=== PATIENT | female | born 1985 | race Caucasian/White ===

== ENCOUNTER → 2017-05-30 | Outpatient (CLI) | payer BC ==
[~2017-05-30] MED LIST: CALC500T PO; CHOL20007 PO; FERR28TA2 PO; FOLI800T PO; MAGN400T6 PO; METH0.2T39 PO; MULT-506 PO
[2017-05-30 13:41] LABS: BASO % 0.3 %; BASO ABS # 0.03 K/uL (0-0.2); COMPLETE YES; EOS % 0.8 %; HEMATOCRIT 39.6 % (37-47); IG% 0.3 %; LYMPH % 26.3 %; LYMPH ABS # 2.36 K/uL (1.2-3.4); MEAN CELL VOLUME 86.8 fL (80-100); MEAN CORPUSCULAR HEMOGLOBIN 29.6 pg (25-34); MEAN CORPUSCULAR HGB CONC 34.1 g/dl (32-36); MEAN PLATELET VOLUME 10.2 fL (7.4-10.4); MONO % 4.9 %; NEUT % 67.4 %; PLATELET COUNT 283 K/uL (130-400); RED BLOOD COUNT 4.56 M/uL (4.2-5.4); WHITE BLOOD COUNT 8.97 K/uL (4.8-10.8)
== END | disposition home or self-care (01) ==
LOC: C.LAB 12:22
PROVIDERS: ATTEND Obstetrics & Gynecology
DX: Z01.812 Encounter for preprocedural laboratory examination (principal)

== ENCOUNTER 2017-05-31 06:30 | Day surgery (SDC) | payer BC ==
[2017-05-28 07:55] VITALS: BMI 25.0
[~2017-05-31] VITALS: Ht 165.1 cm; Wt 68.2 kg
[~2017-05-31 06:30] MED LIST changes: +CEFAZOLIN 2000 MG/60 ML D5W IV SCH; +LACTATED RINGER'S 1000ML 1,000 ML IV SCH; -METH0.2T39 PO
[2017-05-31 06:54] VITALS: BP 106/72; PULSE 85; TEMP 37.3; O2SAT 100; Ht 165.1 cm; Wt 68.2 kg
[2017-05-31] MEDS ORDERED: SCOPOLAMINE 1.5 MG TDSY TD ONE (07:26)
[2017-05-31] MEDS ORDERED: MIDAZOLAM HCL 1 MG/ML 2ML VIAL ONE (07:28)
[2017-05-31] MEDS ORDERED: LIDOCAINE HCL 2% 2 ML VIAL (20MG/ML) ONE (07:28)
[2017-05-31] MEDS ORDERED: PROPOFOL IV EMULSION 10 MG/ML 20 ML VIAL IV ONE ×2 (07:28→08:43)
[2017-05-31] MEDS ORDERED: FENTANYL CITRATE INJ 50 MCG/1 ML 2 ML VIAL ONE (07:28)
[2017-05-31] MEDS ORDERED: NURSING VERBAL MED ORDER ONE (07:30)
[2017-05-31] MEDS ORDERED: ONDANSETRON INJ 2 MG/ML 2 ML VIAL ONE (07:36)
[2017-05-31] MEDS ORDERED: DEXAMETHASONE SOD INJ 4 MG/ML VIAL ONE (07:36)
[2017-05-31] MEDS ORDERED: KETOROLAC TROMETHAMINE 30 MG/ML VIAL ONE (07:57)
[2017-05-31] MEDS ORDERED: IODINE STRONG ONE (08:14)
[2017-05-31] MEDS ORDERED: SILVER NITR/POTASSIUM NITRATE 10 APPLICATOR PACK ONE (08:16)
[2017-05-31] MEDS ORDERED: METHYLERGONOVINE MALEATE 0.2 MG/ML AMP ONE (08:19)
--- NOTE | 2017-05-31 08:20 | History & Physical Bridge Note ---
H&P Re-Evaluation Bridge Note: I have examined the patient, reviewed the History & Physical and in the interval since the performance of the History & Physical I have noted the following changes of clinical significance: No changes noted
[2017-05-31] MEDS ORDERED: CLINDAMYCIN PHOS 150 MG/ML 2 ML VIAL ONE (08:43)
[2017-05-31] MEDS ORDERED: FENTANYL CITRATE INJ 50 MCG/1 ML 2 ML VIAL IV PRN (08:45)
[2017-05-31] MEDS ORDERED: EpHEDrine SULFATE INJ 50 MG/ML AMP IV PRN (08:45)
[2017-05-31] MEDS ORDERED: ONDANSETRON INJ 2 MG/ML 2 ML VIAL IV PRN ×2 (08:45→09:45)
[2017-05-31] MEDS ORDERED: ATROPINE SULFATE 0.1 MG/ML 5ML SYR IV PRN (08:45)
[2017-05-31] MEDS ORDERED: FERRIC SUBSULFATE 8 GM VIAL ONE (09:03)
--- NOTE | 2017-05-31 09:26 | [facility] Post Operative Brief Note ---
Immediate Operative Summary Operative Date May 31, 2017. Pre-Operative Diagnosis Missed Post-Operative Diagnosis Same as preop Procedure(s) Performed Evaluation Under Anesthesia; Dilation, Suction and Curettage Surgeon Dr. Carson Ribber Surgeon(s) OR nurse Estimated Blood Loss 50 cc Findings 8 week size uterus, DIESEL INSPECTOR adnexa Specimens A: products of conception Anesthesia LMA Complication(s) None Disposition Recovery Room / PACU
[2017-05-31] MEDS ORDERED: SODIUM CHLORIDE 0.9% 1000ML 1,000 ML IV SCH (09:33)
[2017-05-31] MEDS ORDERED: METH0.2T39 PO (09:36)
--- NOTE | 2017-05-31 09:37 | Discharge Instructions ---
Discharge Instructions Date of Service May 31, 2017. Admission Reason for Admission: Missed Discharge Discharge Diagnosis / Problem: Suction, D7C Discharge Goals Goal(s): Routine recovery after surgery Activity Recommendations Activity Limitations: as noted below Lifting Limitations: gradually increase as tolerated Exercise/Sports Limitations: until after follow-up appointment May Resume Sexual Activity: after follow-up appointment Shower/Bathe: no limitations Driving or Machine Use: ACTIVITY RECOMMENDATIONS: * Avoid tampons, douching, hot tubs, pools, and intercourse until bleeding has stopped. * May shower as usual. * No strenuous activity for 24-48 hours. After 24-48 hours, you may do anything you feel like doing (driving and sports are okay). SPECIAL CARE INSTRUCTIONS: Special Diet: * Mild nausea may occur in the immediate post-operative period. * Take clear liquids such as tea, cola or bouillon until all nausea has subsided; you may then resume your normal diet. Special Care: * Light bleeding and vaginal spotting can last from a few days to 3-4 weeks. Call your doctor if bleeding becomes heavier than the heaviest part of your period. * Check your temperature twice a day for one week. If it goes above 100.4 degrees Fahrenheit (38.0 Celsius), notify your doctor. * Call your doctor's office for an appointment for 6 weeks after your surgery. FOLLOW-UP VISIT: Call your doctor's office for an appointment for 6 weeks after your surgery. . Current Hospital Diet Patient's current hospital diet: Discharge Diet Recommended Diet: Regular Diet Procedures Procedures Performed: Evaluation Under Anesthesia; Dilation, Suction and Curettage Pending Studies Studies pending at discharge: no Medical Emergencies . Who to Call and When: Medical Emergencies: If at any time you feel your situation is an emergency, please call 911 immediately. . Non-Emergent Contact Non-Emergency issues call your: Surgeon Call Non-Emergent contact if: temperature is above 100.5, your pain is not controlled, your pain is worsening, wound has increased drainage . . "Provider Documentation" section prepared by Kelley Carson. . VTE Core Measure Inpt VTE Proph given/why not?: Treatment not indicated
[2017-05-31] MEDS ORDERED: PROMETHAZINE HCL INJ 25 MG in SODIUM CHLORIDE 0.9% 50ML 50 ML IV PRN (09:45)
[2017-05-31] MEDS ORDERED: MoRPHine SULFATE 2 MG/ML CARP IV PRN (09:45)
[2017-05-31] MEDS ORDERED: MoRPHine SULFATE 4 MG/ML 1 ML CARP\\VIAL IV PRN (09:45)
[2017-05-31] MEDS ORDERED: IBUPROFEN 600 MG TAB PO PRN (09:45)
[2017-05-31] MEDS ORDERED: OXYCODONE/ACETAMINOPHEN 5-325 TAB PO PRN ×2 (09:45)
[2017-05-31] MEDS ORDERED: KETOROLAC TROMETHAMINE 30 MG/ML VIAL IV. PRN (09:45)
[2017-05-31 10:05] VITALS: BP 125/77; TEMP 37.2; O2SAT 97
--- NOTE | 2017-05-31 10:32 | OPERATIVE REPORT ---
DATE OF OPERATION: 05/31/2017 PREOPERATIVE DIAGNOSIS: The patient is a 31-year-old G1, P0 at 13 weeks by last period and 7 weeks with ultrasound without heart rate, missed and desire for surgical termination. POSTOPERATIVE DIAGNOSIS: Same. PROCEDURE: Exam under anesthesia, dilatation and suction and curettage. SURGEON: Dr. Carson. WAREHOUSE DISTRIBUTION ASSOCIATE: OR nurse. ESTIMATED BLOOD LOSS: 50 mL. FLUIDS: 600 mL of normal saline. SPECIMENS: Products of conception. ANESTHESIA: LMA, Dr. Galeas. COMPLICATIONS: None. FINDINGS: Examination under anesthesia revealed an 8 weeks size uterus, anteverted and nonpalpable adnexa. PROCEDURE: The patient was taken to the operating room where anesthesia was given without difficulty. She was placed in dorsal lithotomy position, prepared and draped in the usual sterile fashion. A timeout was done and then the straight catheter was used to drain the bladder, 50 mL of clear urine was obtained. Exam under anesthesia was done with the above findings. Gloves were changed. A weighted speculum was placed in the patient's vagina and anterior vaginal wall was retracted. The cervix was visualized, grasped with single tooth tenaculum. Cervical os was dilated already to 1 cm. Uterus was sounded to 12 cm and then a #8 suction tip was used and connected to the suction device. It was introduced from cervix gently and suction was started. Uterine cavity was suctioned and twisting the tip in a clockwise direction and products of conception were suctioned and suction was repeated producing again moderate amounts of products of conception and then the third time there were no products of congestion seen but a small amount of blood seen on the suction tube and suction was ended. With a small sharp curette uterine cavity was curetted in its entirety. Uterine cry sensation was felt and curette was ended. All tissues were sent to pathology. Uterus was palpated to be now smaller, firm, normal size and minimal bleeding was seen from the os. Anesthesia was notified to give intramuscular Methergine which was given at 0.2 mg dose. The tenaculum site was visualized and was oozing minimal blood. It was controlled with Monsel's solution and there was no bleeding from the cervical os. The procedure was ended. All the sponge, instrument count was correct x2. She was given 2 grams of cefazolin and 600 mg of clindamycin before surgery. She was cleaned, taken out from lithotomy position. She was brought to recovery room in stable condition. No complications happened. I was present during whole procedure. I attest to the content of the Intraoperative Record and any orders documented therein. Any exceptions are noted below. LILO
[2017-05-31 10:35] VITALS: BP 109/68; PULSE 72; O2SAT 91
--- NOTE | 2017-05-31 10:45 | Anesthesiology Progress Note ---
Anesthesia Post Op Note Date & Time May 31, 2017 at 10:45 Vital Signs Pain Intensity: 0 Vital Signs Past 12 Hours Date Time Temp Pulse Resp B/P (MAP) Pulse Ox O2 Delivery O2 Flow Rate FiO2 05/31/17 10:02 36.6 05/31/17 09:58 80 14 100 05/31/17 09:58 77 14 05/31/17 09:56 113/88 05/31/17 09:53 81 15 05/31/17 09:53 83 15 100 05/31/17 09:51 122/75 05/31/17 09:48 81 12 99 05/31/17 09:48 84 12 05/31/17 09:47 82 16 05/31/17 09:47 84 16 100 05/31/17 09:46 107/74 05/31/17 09:42 87 13 100 05/31/17 09:42 85 13 05/31/17 09:41 124/79 05/31/17 09:37 96 16 100 05/31/17 09:37 93 16 05/31/17 09:36 115/77 05/31/17 09:34 84 13 05/31/17 09:34 83 13 100 05/31/17 09:31 122/67 05/31/17 09:29 84 15 05/31/17 09:29 85 15 100 05/31/17 09:26 102/51 05/31/17 09:24 63 16 100 05/31/17 09:24 63 16 05/31/17 09:21 96/48 05/31/17 09:20 93/47 05/31/17 09:19 36.8 62 12 93/47 99 Mask 10 05/31/17 09:19 62 15 05/31/17 09:19 62 15 99 05/31/17 06:54 37.3 85 18 106/72 (83) 100 Room Air Notes Mental Status: alert / awake / arousable, participated in evaluation Pt Amnestic to Procedure: Yes Nausea / Vomiting: adequately controlled Pain: adequately controlled Airway Patency, RR, SpO2: stable & adequate BP & HR: stable & adequate Hydration State: stable & adequate Anesthetic Complications: no major complications apparent
[2017-05-31 11:05] VITALS: BP 115/72; PULSE 82; TEMP 36.8; O2SAT 95
[2017-05-31 13:31] VITALS: BP 115/72; PULSE 72; TEMP 37.2; O2SAT 97
[2017-05-31] MEDS ORDERED: CHECK SCOPOLAMINE PATCH PLACEMENT SCH (16:00)
== END 2017-05-31 11:10 | disposition home or self-care (01) ==
LOC: C.ACU 06:30
PROVIDERS: ATTEND Obstetrics & Gynecology
DX: O02.1 Missed abortion (principal)

== ENCOUNTER 2019-05-27 17:29 | Inpatient (IN) ==
[2019-05-27] MEDS ORDERED: OXYTOCIN 30 UNITS/500 ML BAG IV PRN ×2 (17:58→20:42)
[2019-05-27] MEDS ORDERED: PENICILLIN G POTASSIUM 6 MU in DEXTROSE 5% 250 ML IV STA (17:58)
[2019-05-27] MEDS: LACTATED RINGER'S 1,000 ML IV PRN ×3 (18:05→23:40)
[2019-05-27 18:15] LABS: Hematocrit (blood only) 35.5 % (37-47); Hemoglobin 12.1 g/dL (12.0-16.0); Mean Corpuscular Volume 87.2 fL (80-100); Mean Platelet Volume 10.8 fL (7.4-10.4); Platelet Count 207 K/uL (130-400); RDW Coefficient of Variation 14.4 % (11.5-14.5); RDW Standard Deviation 46.2 fL (36.4-46.3); Red Blood Count 4.07 M/uL (4.2-5.4); White Blood Count 11.47 K/uL (4.8-10.8)
[2019-05-27 18:25] LABS: Mean Corpuscular Hgb Conc 34.1 g/dL (32-36)
[2019-05-27] MEDS ORDERED: PENICILLIN G POTASSIUM 3 MU in DEXTROSE 5% 100 ML IV PRN (18:45)
[2019-05-27] MEDS ORDERED: ePHEDrine sulfate 50 MG/ML AMP ONE (18:51)
[2019-05-27] MEDS ORDERED: BUPIVACAINE 0.25% 30 ML VIAL ONE (18:51)
[2019-05-27] MEDS ORDERED: fentaNYL citrate 100 MCG/2 ML VIAL ONE (18:52)
[2019-05-27] MEDS ORDERED: fentaNYL 2MCG/ML ROPIV 1.25MG/ML 100 ML BAG EPI ONE (18:52)
[2019-05-27] MEDS ORDERED: DiphenhydrAMINE HCL 50 MG/ML VIAL IV PRN (19:06)
[2019-05-27] MEDS ORDERED: NALOXONE HCL 0.4 MG/1 ML VIAL/CARP IV PRN (19:06)
[2019-05-27] MEDS ORDERED: NALOXONE HCL 1 MG in SODIUM CHLORIDE 0.9% 1000ML 1,000 ML IV PRN (19:06)
[2019-05-27] MEDS ORDERED: NALBUPHINE HCL INJ 10 MG/ML AMP IV PRN (19:06)
[2019-05-27] MEDS ORDERED: fentaNYL 2MCG/ML ROPIV 1.25MG/ML 100 ML BAG EPI PRN (19:06)
[2019-05-27] MEDS: ePHEDrine sulfate 50 MG/ML AMP IV PRN ×3 (19:30→19:39)
--- NOTE | 2019-05-27 19:42 | Anesthesiology Consultation ---
Date of Service May 27, 2019 Assessment & Plan Chart Review Chart Review: Acceptable Risk for Labor Epidural Consults Requested none History Height/Weight Height: 5 ft 6 in Weight: 84.368 kg Allergies Allergy/AdvReac Type Severity Reaction Status Date / Time No Known Drug Allergies Allergy Unknown NKDA Verified 05/27/19 17:44 Medications Home Medications Medication Instructions Recorded Confirmed Last Taken docusate sodium [Colace] 100 mg PO DAILY 05/25/19 05/27/19 05/27/19 09:00 folic acid 0.8 mg PO DAILY 05/25/19 05/27/19 05/27/19 09:00 vit-iron fum-folic ac 1 tab PO DAILY 05/25/19 05/27/19 05/27/19 09:00 [ Vitamin] ranitidine HCl [Zantac] 300 mg PO DAILY 05/25/19 05/27/19 05/27/19 09:00 Active Medications Generic Name Dose Route Start Last Admin Trade Name Freq PRN Reason Stop Dose Admin Ephedrine Sulfate 10 mg 05/27/19 19:06 05/27/19 19:39 Ephedrine Sulfate IV 05/28/19 19:05 10 mg Q5M PRN Administration Hypotension Lactated Ringer's 1,000 mls @ 125 mls/hr 05/27/19 17:58 05/27/19 19:30 Lr IV 05/29/19 17:57 999 mls/hr .Q8H PRN Infusion L&D Protocol Protocol Past Medical History Medical History Chronic constipation GERD (gastroesophageal reflux disease) Migraines depression History of spontaneous [place] teeth removed Past Surgical History Surgical History History of dilatation and curettage Social History Smoking Status: Never smoker Hx Alcohol Use: No Hx Substance Use: No substance use type: does not use Physical Exam Vital Signs Last Vital Signs Temp 36.8 C 05/27/19 19:01 Pulse 88 05/27/19 19:40 Resp 18 05/27/19 19:01 BP 121/65 05/27/19 19:40 Pulse Ox 98 05/27/19 19:39 Testing Laboratory Results 05/27/19 18:06
[2019-05-27] MEDS: PENICILLIN G POTASSIUM 3 MU in DEXTROSE 5% 100 ML IV SCH (22:20)
[2019-05-28] MEDS ORDERED: HYDROCORTISONE ACETATE 25 MG SUPP PR PRN (01:29)
[2019-05-28] MEDS ORDERED: ACETAMINOPHEN W/CODEINE #3 1 TAB PO PRN (01:29)
[2019-05-28] MEDS ORDERED: SUPERCREAM 0.870% 15 GM JAR EXT PRN (01:29)
[2019-05-28] MEDS ORDERED: BENZOCAINE 20% AER SPR 82.5 GM CAN EXT PRN (01:29)
[2019-05-28] MEDS ORDERED: BISACODYL 10 MG SUPP PR PRN (01:29)
[2019-05-28] MEDS ORDERED: DIPHTHERIA/TETANUS/PERTUSSIS 0.5 ML SYR/VIAL IM ONE (01:29)
[2019-05-28] MEDS ORDERED: OXYCODONE/ACETAMINOPHEN 5mg/325mg TAB PO PRN (01:29)
[2019-05-28] MEDS ORDERED: ACETAMINOPHEN 325 MG TAB PO PRN (01:29)
[2019-05-28] MEDS ORDERED: OXYTOCIN 30 UNITS/500 ML BAG IV PRN (01:29)
[2019-05-28] MEDS: PENICILLIN G POTASSIUM 3 MU in DEXTROSE 5% 100 ML IV SCH (02:06)
--- NOTE | 2019-05-28 02:26 | Operative Report ---
DATE OF OPERATION: 05/28/2019 Ms. Dominguez is a 2, para 1. She was admitted in spontaneous labor at about 37 weeks 5 days. She is Rh negative. Vaginal beta strep positive. She came to the hospital. She was having strong contractions. She was about 4 cm dilated. She was immediately started on IV penicillin. She was given 6 million units of IV penicillin and then subsequently requested and received epidural anesthesia. After the second unit of antibiotics were started, we started augmenting her contractions with Pitocin and ruptured the membranes at about 5-6 cm. Fluid was clear. She went to full dilatation, delivered a live male via direct occiput anterior position over an intact perineum. There was a nuchal cord around the head, which was easily reduced over the head. Shoulders were delivered without difficulty. Cord was clamped, cut by the father. Cord blood was taken. With IV Pitocin running, the placenta was removed intact. Inspection of the perineum revealed a deep laceration of the right labia minora. This area was infiltrated with local with epinephrine and then sutured with a running 3-0 chromic gut suture. Following this, hemostasis was good. I emptied the bladder with a straight catheter, checked the perineum and posterior vagina. There was no hematoma formation. Estimated blood loss was only 100 mL. Apgars deferred to the nurses. I attest to the content of the Intraoperative Record and any orders documented therein. Any exception s are noted below.
--- NOTE | 2019-05-28 04:50 | Anesthesia Procedure Note ---
Date of Service May 28, 2019 Anesthesia Post Epidural Note Vital Signs Vital Signs: Temp Pulse Resp BP Pulse Ox 36.6 C 108 H 18 119/80 97 05/28/19 04:06 05/28/19 04:06 05/28/19 04:06 05/28/19 04:06 05/28/19 01:24 Pain Intensity Bilateral Head: Pain Intensity: 2 Notes Mental Status: alert / awake / arousable Nausea / Vomiting: adequately controlled Pain: adequately controlled Airway Patency, RR, SpO2: stable & adequate BP & HR: stable & adequate Hydration State: stable & adequate Neuraxial Anesthesia: was administered and sensory block is resolving Anesthetic Complications: no major complications apparent and Pt Satisfied with anesthetic care Epidural: Removed without complications and With tip intact
[2019-05-28] MEDS: PRENATAL VITAMIN 1 TAB PO SCH (08:39)
[2019-05-28] MEDS: DOCUSATE SODIUM 100 MG CAP PO SCH ×2 (08:39→21:59)
[2019-05-28] MEDS: IBUPROFEN 600 MG TAB PO PRN ×3 (08:39→18:31)
[2019-05-29] MEDS: IBUPROFEN 600 MG TAB PO PRN (06:39)
[2019-05-29 07:52] LABS: Hematocrit (blood only) 32.7 % (37-47); Mean Corpuscular Hgb Conc 33.6 g/dL (32-36); Mean Corpuscular Volume 88.1 fL (80-100); Mean Platelet Volume 10.7 fL (7.4-10.4); Platelet Count 213 K/uL (130-400); RDW Coefficient of Variation 14.6 % (11.5-14.5); Red Blood Count 3.71 M/uL (4.2-5.4); White Blood Count 11.61 K/uL (4.8-10.8)
[2019-05-29] MEDS: PRENATAL VITAMIN 1 TAB PO SCH (08:02)
[2019-05-29] MEDS: DOCUSATE SODIUM 100 MG CAP PO SCH ×2 (08:02→20:38)
--- NOTE | 2019-05-29 10:09 | Obstetrical Progress Note ---
Date of Service May 29, 2019 Subjective doing well Physical Exam Constitutional: WD/WN, vitals as above comfortable ambulating well and tolerating diet tent d/c in AM Results & Data Vital Signs (Past 12 Hours) Vital Signs Temp Pulse Resp BP Pulse Ox 05/29/19 08:00 36.5 C 84 18 109/64 97 05/28/19 22:55 36.7 C 77 18 101/65 99 Laboratory Results 05/27/19 05/28/19 05/29/19 18:06 08:06 07:36 WBC 11.47 H 11.61 H RBC 4.07 L 3.71 L Hgb 12.1 11.0 L Hct 35.5 L 32.7 L MCV 87.2 88.1 MCH 29.7 29.6 MCHC 34.1 33.6 RDW Std Deviation 46.2 47.0 H RDW Coeff of Soraya 14.4 14.6 H Plt Count 207 213 MPV 10.8 H 10.7 H Blood Type Cancelled Antibody Screen Cancelled Screen Cancelled
[2019-05-29] MEDS ORDERED: BISACODYL 5 MG TABEC PO SCH (20:00)
[2019-05-30] MEDS: IBUPROFEN 600 MG TAB PO PRN ×4 (00:03→18:10)
[2019-05-30] MEDS: PRENATAL VITAMIN 1 TAB PO SCH (09:32)
[2019-05-30] MEDS: DOCUSATE SODIUM 100 MG CAP PO SCH (09:32)
--- NOTE | 2019-05-30 11:11 | Obstetrical Progress Note ---
Date of Service May 30, 2019 Assessment & Plan (1) normal course: PPd #2 pt doing well d/c home with instrcutions Subjective Ambulation: ambulating normally Voiding: no voiding problems Passing Gas:: Yes Diet Tolerance:: regular diet Lochia:: Small Feeding Type:: breast feeding Review of Systems All systems reviewed & are unremarkable except as noted in HPI & below Physical Exam Constitutional WD/WN, vitals as above well developed and well nourished Eyes PERRL, conjunctivae normal, anicteric sclerae Neck trachea midline, no thyromegaly Respiratory normal respiratory effort, lungs clear to auscultation Auscultation: no crackles, no rales and no wheezes Cardiovascular RRR, no murmur, no edema Gastrointestinal (Abdomen) normal bowel sounds, soft, nontender, no hepatosplenomegaly Uterus is below umbilicus Musculoskeletal no cyanosis or clubbing, extremities motor strength 5/5 Skin no rashes, warm and dry Neurologic patellar DTR's 2+ bilat, sensation intact Psychiatric A+Ox3, euthymic affect Genitourinary normal external appearance Results & Data Vital Signs (Past 12 Hours) Vital Signs Temp Pulse Resp BP Pulse Ox 05/30/19 01:23 36.8 C 89 18 112/69 99
== END 2019-05-30 18:20 | disposition home or self-care (01) | DRG 807 ==
LOC: OPB 17:29 → 4S1 17:29 → 4S2 05-28 03:50